=== PATIENT | female | born 1995 | race Caucasian/White ===

== ENCOUNTER 2025-05-28 02:54 | Day surgery (SDC) | payer OTHER, SELFPAY ==
[2025-05-19 10:16] VITALS: BMI 24.5
--- NOTE | 2025-05-19 10:24 | SUR.PREOP ---
Report to the Outpatient Waiting Room, entrance under the green pavilion located off [facility], at time 6:00a.m. on date 05/28/2025. Planned Procedure Time: 7:30a.m.? Time changes happen often and if your time is changed the preop area will call you the afternoon before. - You and your visitor will be asked to self-screen and do not enter if you have any COVID symptoms. Please call surgeon if you need to reschedule. - A mask is optional within the hospital at this time. Patients may have clear liquids (water, carbonated beverages, clear teas, apple juice) until 3 hours prior to surgery with a maximum of 20 ounces. - No food from midnight until time of surgery and no smoking, or chewing tobacco (or any form of nicotine). No chewing gum, candy or mints. - Infants may have breast milk until 4 hours before surgery, infant formula 6 hours prior to surgery. - Children will be allowed to drink immediately following surgery.? If applicable, please bring a bottle or sippy cup to assist with drinking. Juice, water, soda, and popsicles are readily available.? For infants on formula, please bring formula the day of surgery.? Pacifiers are allowed. Take only the following medications with a SIP of water on the morning of surgery: fluoxetine, Xanax DO NOT STOP ANY OF YOUR OTHER PRESCRIPTION MEDICATIONS PRIOR TO SURGERY EXCEPT THE FOLLOWING Hold all vitamins and supplements for 3 days per anesthesiologist. Medications to discontinue per physician Vitamins and Supplements Date to take last dose 05/25/2025 Please no make-up, nail belarusian, hairspray, perfume, deodorant, or body powder the day of surgery.? No jewelry (including any body piercings) or valuables the day of surgery, leave them at home.? Please take a shower or bath the night before, or the morning of, surgery with an antibacterial soap.? Wear comfortable, loose fitting clothing.? Children are encouraged to wear pajamas. - Jewelry must be removed prior to entering the operating room.? Rings and piercings that are not removed may be cut off. - The hospital will not accept responsibility for valuables.? - Please leave all valuables, including medications, at home the day of surgery. If you are going home after surgery, a licensed local [place] truck driver must drive you home.? - NO public transportation without another adult if you receive anesthesia. - We recommend that an adult stay with you for 24 hours following discharge. - We also recommend that you do not drive, make important decision, drink alcoholic beverages, or take any drugs that were not prescribed by your health care provider for at least 24 hours after your discharge time. For Pediatric surgeries, we recommend two adults accompany the child home. Follow any additional instructions given to you from your surgeon. Telephone instructions given to and asked if any additional questions and then verbalized understanding. Patient advised to call surgeon office or pre surgery nurse liaison [phone] if any additional questions.
[2025-05-28] VITALS (8 sets, daily range): BP systolic 116–132; BP diastolic 64–85; PULSE 79–100; RESP 14–20; TEMP 36.3–36.5; O2SAT 97–100
--- OUTSIDE RECORDS SUMMARY | 2025-05-28 02:56 | XMS_ITS | Clinical Summary ---
Author Organization [facility] [employer] Address [address] [place] [address] Care Team Providers Care Harnessmaker Apprentice Name Role Phone Jordyn Jones SUSANNAH-INDUSTRIAL ANALYST Primary Care Provider Source Comments [facility] [employer],non-owned Affiliates and Associated Physician Practices is amultiple site organization consisting of ambulatory clinics and hospital sitesin [place], [place], [place] and [place]. This disclosure is being madepursuant to the Care Everywhere program and may not contain all information available regarding this patient. Last updated 18.[facility] [employer] Allergies No known active allergies Medications * Be aware that medications may not be up to date on this document. Alwaysverify current medications with the patient. Galcanezumab-g nlm (EMGALITY) 120 MG/ML auto-injector pen Inject 120 mg subcutaneously every 30 days Active cyanocobalamin (VITAMIN B-12) 0.001MCG/ML injection Inject 1,000 mcg subcutaneously every 7 days Active ELDERBERRY PO Active acetaminophen (TYLENOL) 500 MG tablet Take 2 (two) tablets by mouth every 6 hours as needed Maximum allowable Acetaminophen amount = 4 Grams (4000 mg) / 24 hours. 1 Active calcium carbonate (TUMS) 500 MG chew tablet Take 2 (two) tablets by mouth every 4 hours as needed 1 Active ibuprofen (MOTRIN) 600 MG tablet Take 1 (one) tablet by mouth every 6 hours 1 Active Vit-DSS-Fe Fum-FA ( VITAMIN WITH IRON) tablet Take 1 (one) tablet by mouth once daily Active Active Problems Problem Noted Date Diagnosed Date 39 weeks gestation of 01/26/2021 Immunizations Immunization Administration Dates Next Due TDAP (7yrs+) 01/28/2021(Deferred: See Comment s),01/27/2021 Family History Medical History Relation Name Comments Arthritis - Rheumatoid Father Diabetes - Type 2 Maternal Grandmother Relation Name Status Comments Father Maternal Grandmother Social History Tobacco Use Types Packs/Day Years Used Date Smoking Tobacco: Never Smokeless Tobacco: Never Alcohol Use Standard Drinks/Week Comments Not Currently 0 (1 standard drink = 0.6 oz pur e alcohol) Comments No Sex and Gender Information Value Date Recorded Sex Assigned at Not on file Legal Sex Female 8:31 AM CDT Gender Identity Not on file Sexual Orientation Not on file Last Filed Vital Signs Vital Sign Reading Time Taken Comments Blood Pressure 86/54 01/28/2021 8:01 AM CDT Pulse 93 01/28/2021 8:01 AM CDT Temperature 36.4 C (97.5 F) 01/28/2021 8:01 AM CDT Respiratory Rate 18 01/28/2021 8:01 AM CDT Oxygen Saturation 94% 01/28/2021 8:01 AM CDT Inhaled Oxygen Concentration - - Weight 105.7 kg (233 lb) 01/26/2021 9:06 PM CDT Height 157.5 cm (5' 2) 01/26/2021 9:06 PM CDT Body Mass Index 42.62 01/26/2021 9:06 PM CDT Plan of Treatment Health Maintenance Due Date Last Done Comments HIV SCREENING 2010 HEPATITIS C SCREENING 05/27/2013 HEPATITIS B VACCINE (1 of 3 - 19+ 3-dose series) 2014 HPV VACCINE (1 - 3-dose SCDM series) 2022 COVID-19 VACCINE ( - 2023-2 5 season) 2024 DEPRESSION SCREENING 10/22/2024 INFLUENZA VACCINE (#1) 2025 DTAP/TDAP/TD VACCINES (2 - T d or Tdap) 01/27/2031 01/27/2021 ZOSTER VACCINE (1 of 2) 2045 HIB VACCINE Aged Out No longer eligi ble based on patient's age to complete this topic MENINGOCOCCAL (Group B) VACC INE SHARED DECISION-MAKING Aged Out No longer eligibl e based on patient's age to complete this topic MENINGOCOCCAL GROUPS A/C/Y/W VACCINE Aged Out No longer eligible b ased on patient's age to complete this topic PNEUMOCOCCAL VACCINE Aged Out No long er eligible based on patient's age to complete this topic Insurance Advance Directives * Full Code (Latest Code Status on File) Date Activated Date Inactivated Comments 01/26/2021 8:43 PM 01/28/2021 6:29 PM Care Teams Harnessmaker Apprentice Relationship Specialty Start Date End Date Jordyn Jones APRN-FABIENNE [address] [place] [phone] PCP - General Nurse Practitioner Family 01/26/21
--- OUTSIDE RECORDS SUMMARY | 2025-05-28 02:56 | XMS_ITS | Clinical Summary ---
Author Organization [facility] Address [address] [place] [address] Phone Care Team Providers Care Brush And Broom Clipper Name Role Phone Identified, No Provider Primary Care Provider Un available Social History Tobacco Use Types Packs/Day Years Used Date Smoking Tobacco: Never Assessed Comments Unknown Sex and Gender Information Value Date Recorded Sex Assigned at Not on file Legal Sex Female 10:[address] [employer] Gender Identity Not on file Sexual Orientation Not on file Plan of Treatment Health Maintenance Due Date Last Done Comments MMR Vaccines (1 of 1 - Stand namrata series) 1996 Depression Screening 2007 Varicella Vaccines (1 of 2 - 13+ 2-dose series) 2008 DTaP/Tdap/Td Vaccines (1 - Tdap) 2014 Hepatitis B Vaccines (1 of 3 - 19+ 3-dose series) 2014 Pap Smear 2016 COVID-19 Vaccine ( - 2023-2 5 season) 2024 Influenza Vaccine (#1) 2025 HIB Vaccines Aged Out No longer eligi ble based on patient's age to complete this topic HPV Vaccines Aged Out No longer eligi ble based on patient's age to complete this topic Hepatitis A Vaccines Aged Out No long er eligible based on patient's age to complete this topic IPV Vaccines Aged Out No longer eligi ble based on patient's age to complete this topic Meningococcal B Vaccine Aged Out No l onger eligible based on patient's age to complete this topic Meningococcal Vaccine (ACWY) Aged Out No longer eligible based on patient's age to complete this topic Pneumococcal Vaccines Aged Out No skylar sugar eligible based on patient's age to complete this topic Rotavirus Vaccines Aged Out No longer eligible based on patient's age to complete this topic Care Teams Brush And Broom Clipper Relationship Specialty Start Date End Date Identified, No Provider PCP - General 03/26/20
--- OUTSIDE RECORDS SUMMARY | 2025-05-28 02:56 | XMS_ITS | Clinical Summary ---
Author Organization [facility] Address [address] [place] [address] Care Team Providers Care Welding Process Engineer Name Role Phone MaydaeneidairineoJordyn KENNY Primary Care Provider Allergies No known active allergies Medications phentermine 37.5 MG tablet 12/14/2021 Active azithromycin (ZITHROMAX) 250 MG tablet Take 2 tabs on day 1, then 1 tab daily on days 2-5 6 tablet 09/25/2022 Active fluticasone propionate (FLONASE) 50 MCG/ACT nasal spray 1 spray by Nasal route daily. 1 g 09/25/2022 Active Social History Tobacco Use Types Packs/Day Years Used Date Smoking Tobacco: Never Smokeless Tobacco: Never Tobacco Cessation:Counseling Given: Not Answered Alcohol Use Standard Drinks/Week Comments Never 0 (1 standard drink = 0.6 oz pur e alcohol) Comments Unknown Sex and Gender Information Value Date Recorded Sex Assigned at Not on file Legal Sex Female 12:13 PM BULK[employer] CARPENTER Gender Identity Not on file Sexual Orientation Not on file Last Filed Vital Signs Vital Sign Reading Time Taken Comments Blood Pressure 144/75 09/25/2022 10:36 AM BULK[employer] CARPENTER Pulse 84 09/25/2022 10:36 AM BULKHEAD CARPENTER Temperature 36.8 C (98.3 F) 09/25/2022 10:36 AM BULKHEAD CARPENTER Respiratory Rate 12 09/25/2022 10:36 AM BULKHEAD CARPENTER Oxygen Saturation 100% 09/25/2022 10:36 AM BULKHEAD CARPENTER Inhaled Oxygen Concentration - - Weight 65.8 kg (145 lb) 09/25/2022 10:36 AM BULKHEAD CARPENTER Height 157.5 cm (5' 2) 09/25/2022 10:36 AM BULKHEAD CARPENTER Body Mass Index 26.52 09/25/2022 10:36 AM BULKHEAD CARPENTER Plan of Treatment Health Maintenance Due Date Last Done Comments Cervical Cancer Screening Pa p Smear (Age 21 to 29) Every 3 Years 1995 Cervical Cancer Screening 1995 Annual Physical 1998 Hepatitis C 2013 Hepatitis B Vaccines (1 of 3 - 19+ 3-dose series) 2014 HPV Vaccines (1 - 3-dose SCD M series) 2022 COVID-19 Vaccine (1 - 2023-2 5 season) 2024 DTaP, Tdap and Td Vaccines ( 2 - Td or Tdap) 01/27/2031 01/27/2021 Meningococcal B Vaccine Aged Out No l onger eligible based on patient's age to complete this topic Meningococcal Vaccine Aged Out No skylar sugar eligible based on patient's age to complete this topic Pneumococcal Vaccine: Pediat rics (0 to 5 Years) and At-Risk Patients (6 to 49 Years) Aged Out No longer eligi ble based on patient's age to complete this topic RSV Immunizations Under 20 Months Aged Out No longer eligible based on patient's age to complete this topic Insurance [facility] Care Teams Welding Process Engineer Relationship Specialty Start Date End Date Jordyn Jones [place] [address] [place] [phone] PCP - General NURSE PRACTITIONER 12/21/21
--- NOTE | 2025-05-28 05:56 | ECG_ITS ---
Test Date: 2025-05-28 07:28:39 Measurements Intervals [place] Rate: 77 P: 50 [place]: 155 QRS: 76 QRSD: 90 T: 41 QT: 373 QTc: 424 Interpretive Statements SINUS RHYTHM BASELINE ARTIFACT- II, AVR, V1, V3 NORMAL ECG No previous ECG available for comparison Electronically Signed On 05-28-2025 07:52:27 CDT by Timur Burns D.O.
--- NOTE | 2025-05-28 06:25 | W.PM.PROC2 ---
Procedure Note - Detailed Date of Procedure 05/28/25 Pre-op Diagnosis breast ptosis, micromastia, skin laxity Post-op Diagnosis Same Procedure Performed 1. Bilateral augmentation mastopexy with Galaflex 2. Progressive tension abdominoplasty with suction lipectomy Surgeon Lam Miller MD Anesthesia General Findings Inverted T, superior medial pedicle Bilateral Natzofia Inspira SoftTouch 375cc dual plane 1 Right: REF# SSF-365 SN [id number] Left: REF# [id number] Tissue removed: 743 grams Lipoaspirate: 1,750 cc Diastasis 6 cm Description of Procedure They are here today for the above procedures. Previously and again today the risks, benefits, alternatives were discussed in extensive detail. I wanted them to be very realistic about the risks involved as well as expectations. We discussed aftercare and what to monitor for. I was very upfront about the risks of wound breakdown leading to loss of skin, open wounds, and need for additional procedures with permanent abdominal deformity. We discussed DVT/PE risks and management. Made sure answered all of their questions to their satisfaction today and consent was obtained. They were marked in the preoperative holding area with their verification. The patient was taken to the operating room. Anesthesia was provided by anesthesiology. A Cortez catheter was started. Posterior Placed prone on the operating room table with care taken to protect from injury. Prepped and draped in a standard sterile fashion. A surgical time-out was taken. Stab incisions were made and tumescent solution was infiltrated. Once adequate time was allowed for hemostasis a 5mm basket and 4mm kacie cannula were utilized to complete suction lipectomy based on S.A.F.E. technique in multiple planes and passes. Suction lipectomy continued to result based on pre-operative planning, intra-operative observation, and rolling pinch test which were in full agreement. Breast Patient was then placed supine with care taken to protect from injury. We cleansed the skin and 1% lidocaine and 0.25% Marcaine with epinephrine was used anesthetize as a field block. She was prepped and draped in a standard sterile fashion. Tegaderm nipple Dailey were placed. A 15 blade used to make an incision just superior to the inframammary fold leaving a cusp of de-epithelized tissue at the t junction. Dissection was continued until the chest wall as identified. I incised the pectoralis major along its inferior border and completely released the inferior border leaving the medial border intact. I created a subpectoral pocket in the appropriate dimensions based on our preoperative planning for the implant. I then copiously irrigated with saline solution and verified a strict hemostasis. Next the use a triple antibiotic and Betadine containing solution to irrigate the pocket. I washed my gloves with the triple antibiotic and Betadine solution. We washed the implant immediately upon opening it with this solution and only opened it when we needed it. I used implant funnel and no-touch technique. The implant was introduced into the pocket using the funnel. Having verified positioning of the implant this was closed using 2-0 PDS. I tailor tacked the breast into position. Placed her in a sitting position. Verified the nipple-areolar location based on preoperative planning as well as intraoperative observations and measurements in full agreement. Suction lipectomy was completed laterally with a 4mm kacie cannula. This was based on preoperative planning, intraoperative observation, and rolling pinch which was in full agreement. She was placed supine. I de-epithelialized the pedicle. I then removed the inferior central portion of the breast need making sure the implant was well protected. I elevated medial and lateral tissue flaps as well for planned closure. Secured the IMF with 2-0 PDS. Galaflex was soaking on the back table in a betadine solution. Trimmed and sutured into place with 2-0 Vicryl. I closed along the IMF with 2-0 PDS. Along the vertical with 2-0 PDS. I closed around the areola and the vertical incision with 3-0 Monocryl. 3-0 Stratafix along the IMF. I finally closed everything with running subcuticular 4-0 Monocryl and tissue glue. Abdomen I placed the patient in a flexed position to verify the upper and lower markings would reach. I then placed supine. A thorough abdominal examination was completed. Stab incisions were made and tumescent solution infiltrated. Stab incisions were made and tumescent solution was infiltrated. Once adequate time was allowed for hemostasis a 5mm basket and 4mm kacie cannula were utilized to complete suction lipectomy based on S.A.F.E. technique in multiple planes and passes. Suction lipectomy continued to result based on pre-operative planning, intra-operative observation, and rolling pinch test which were in full agreement. A 10 blade was used to make the upper incision. I continued dissection down to the level of fascia. Elevated just what was necessary for repair of the diastasis. I then again flexed the bed to verify the upper skin flap would reach the lower markings without tension. Once verified I placed her supine once again and a 10 blade used to make the lower incision. I elevated up to level the umbilicus and left the umbilicus intact on a well-vascularized stalk. The intervening tissue was removed. A 2 mm blunt cannula with 0.5% bupivacaine was injected deep to the fascia bilaterally. I plicated the diastasis recti using 0 PDO Stratafix barbed suture. This was in 2 separate layers using 2 separate sutures as well. After the patient was flexed (below) plicated the fascia with 0 PDO Stratafix in two separate layers inferior to the umbilicus. The patient was flexed and starting from superior to inferior began plication using 2-0 Vicryl to obliterate all space in a standard progressive tension fashion. At the umbilicus I marked out the location of the skin and inset this with 3-0 Monocryl and 4-0 Vicryl. I continued the remainder of the plication using 2-0 Vicryl until I reached my lower planned scar line. I trimmed any excess skin of the upper flap making sure this was a tension-free closure. 15 Jayce drain was placed. I then approximated using a 3 point suture with 2-0 Vicryl followed by 2-0 PDO Stratafix, 3-0 Stratafix ,running subcuticular 4-0 Monocryl, and tissue glue. Fluffs, surgical bra, and an abdominal binder were placed. The patient was transferred to the bed in a flexed position. [place] and taken to the PACU without difficulty. All instrument and sponge counts were correct at the end of the case. Estimated Blood Loss 100 Drains Yes (15 Jayce) Packing No Pathology None sent Complications No immediate complications Condition Stable Disposition PACU
[2025-05-28] MEDS: LACTATED RINGERS 1,000 ML 30 ML IV CONT ×2 (06:50→14:09)
[2025-05-28] MEDS: TRANEXAMIC ACID 1,000MG/ISO100 1,000 MG/100 ML BAG 200 MG IVPB (06:51)
--- NOTE | 2025-05-28 06:53 | WPDHPUPDATE1 ---
History and Physical Update Update Date/Time: 05/28/25 06:53 History and Physical has been reviewed, including an updated exam of the patient. There are NO changes in the patient's condition. Risks, benefits, and alternatives have been discussed and questions answered. Patient agrees to proceed with procedure.
[2025-05-28 06:57] LABS: Hematocrit 45.6 % (37.0-47.0); Hemoglobin 14.8 g/dL (12.0-15.0)
--- NOTE | 2025-05-28 07:06 | P.PNAN_ITS ---
Anes - Initial Pre Proc Eval Procedure: Operation Date: 05/28/25 07:30 Proposed Procedures p Bilateral Breast Augmentation, - Lam Miller MD s Bilateral Breast Mastopexy with Galaflex, - Lam Miller MD s Abdominoplasty with Liposuction - Lam Miller MD Date/Time: 05/28/25 07:06 Surgeon: Lam Miller MD Pre Op Diagnosis: breast ptosis, micromastia, skin laxity Patient Data Age: 29 Gender: F Height: 1.57 m Weight: 61 kg Allergies Allergy/AdvReac Type Severity Reaction Status Date / Time No Known Allergies Allergy Verified 05/19/25 10:06 Home Medications ?Medication ?Instructions ?Recorded ?Confirmed ?Type alprazolam 0.25 mg tablet 0.25 mg PO BID PRN anxiety 05/19/25 05/19/25 History ferrous sulfate 325 mg (65 mg 650 mg PO DAILY PRN Menstration 05/19/25 05/28/25 History iron) tablet (Feosol) fluoxetine 20 mg capsule 20 mg PO DAILY 05/19/25 05/28/25 History hiphenolic See Rx Instructions .Route .COMPLEX 05/19/25 05/19/25 History mitocore See Rx Instructions .Route .COMPLEX 05/19/25 05/19/25 History phentermine 37.5 mg tablet 37.5 mg PO DAILY 05/19/25 05/19/25 History Laboratory Tests 05/28/25 05/28/25 06:18 06:50 Hgb 14.8 g/dL (12.0-15.0) Hct 45.6 % (37.0-47.0) Cotinine Negative Patient hx anesthesia problems: none Family hx anesthesia problems: none Results Review: All pre-operative results and documents have been reviewed as part of the pre- operative evaluation. [facility] Past Medical History Medical History (Updated 05/28/25 @ 07:06 by Paulo James MD) Anxiety Social History Social History Smoking status: Never smoker Living arrangements: with family Spiritual care concerns: No Anes - Eval Final PreProcedure Day of Procedure 05/28/25 07:06 Patient weight: normal Heart: regular rate and rhythm Lungs: clear to auscultation Airway: Mallampati scale class II Neurological: alert and oriented Last oral intake: >/= 8 hours ASA classification: II Emergent: no Anesthetic plan: proceed Anesthesia type and monitoring: general ETT and standard monitoring Results Review: All pre-operative results and documents have been reviewed as part of the pre- operative evaluation. Informed Consent: The patient's anesthetic plan and its attendant risks and benefits were discussed with the patient/family/POA. Questions were solicited and answers provided to the satisfaction of the patient/family/POA.
[2025-05-28] MEDS: ceFAZolin 2 GM in SODIUM CHLORIDE 0.9% IV 50 ML 100 ML IVPB (07:33)
[2025-05-28] MEDS: SCOPOLAMINE 1 MG PATCH 1 PATCH TRANSDERM (08:12)
[2025-05-28 08:15] LABS: BEDSIDEPREGUCG Negative (Negative)
[2025-05-28] MEDS: NACL 0.9% IRRIG POUR BOTTLE 900 ML, GENTAMICIN SULFATE INJ 160 MG, ceFAZolin 2 GM, POVI... IRRIGATION (08:21)
[2025-05-28] MEDS: BUPIVACAINE/EPINEPHRINE 0.5% 30 ML VIAL 60 ML INFILTRATE (08:23)
[2025-05-28] MEDS: LIDO 1%/EPINEPHRINE 1:100,000 50 ML VIAL 30 ML INFILTRATE (09:31)
[2025-05-28] MEDS: LACTATED RINGERS IRRIG 1,000 ML, LIDOCAINE 1% LOCAL INJ 50 ML, EPINEPHrine HCL INJ 1 MG... INFILTRATE (11:26)
[2025-05-28] MEDS: fentaNYL CITRATE INJ (*CRX) 100 MCG/2 ML VIAL 25 MCG IV PUSH ×4 (14:25→14:37)
[2025-05-28] MEDS: oxyCODONE HCL (*CRX) 5 MG TAB IR PO (15:18)
== END 2025-05-28 15:50 | disposition home or self-care (01) ==
PROVIDERS: Anesthesiology; Visit Provider Surgery Plastic and Reconstructive Surgery
PROC: (CPT 19325; principal; 2025-05-28 07:30)
PROC: (CPT 19316; 2025-05-28 07:30)
PROC: (CPT 19325; 2025-05-28 07:30)
DX: Z41.1 Encounter for cosmetic surgery (principal); N64.81 Ptosis of breast; N64.82 Hypoplasia of breast; L57.4 Cutis laxa senilis
CPT/HCPCS: 19325; 19316; 15777 ×2; 15830; 15847; 15877; 36415; 80307; 85014; 85018; 93005; J0690; A9270; J0166; J1580; J2003; J2004; J2250; J2704; J3010; J7120